=== PATIENT | female | born 1955 | race Caucasian/White ===

== ENCOUNTER → 2017-04-19 | Outpatient (CLI) | payer BC ==
[~2017-04-19] MED LIST: METHACHOLINE KIT (J7674) INH
== END ==
LOC: M CARPUL 13:41
DX: R06.02 Shortness of breath (principal)

== ENCOUNTER → 2018-06-11 | Outpatient (REF) ==
--- NOTE | 2018-06-12 02:54 | REP ---
Clinical: Pain and disability. Technique: AP, lateral, coned-down views of the lumbosacral spine. Findings: Moderate/advanced multilevel degenerative changes include endplate sclerosis, disc space narrowing, and osteophytosis. No acute fracture / compression injury or subluxation. Impression: Moderate/advanced multilevel degenerative spondylosis. If the patient remains symptomatic consider MRI for further investigation. Electronically Signed by Joaquin Ram MD 06/12/2018 02:46 A
== END ==
LOC: M SMT 13:58
PROVIDERS: ATTEND Internal Medicine
DX: Z00.00 Encounter for general adult medical examination without abnormal findings (principal)